=== PATIENT | female | born 1985 | race Caucasian/White ===

== ENCOUNTER 2021-03-26 16:39 | Emergency (ER) | payer OTHER, SELFPAY ==
[2021-03-26 16:45] VITALS: BP 181/107; PULSE 120; RESP 14; TEMP 36.7; O2SAT 99; BMI 31.1
--- NOTE | 2021-03-26 16:56 | ED_ITS ---
HPI - Headache General Chief Complaint: Headache Stated Complaint: migraine Time Seen by Provider: 03/26/21 16:43 Mode of arrival: Ambulatory History of Present Illness HPI Narrative: 35-year-old female smoker with history of migraines presents with a family frien d in the chief complaint of a migraine since this morning. She states that she has had a gradually worsening of a left posterior headache that is gradually worsened over the course of the day. It is now 7/10 and squeezing in nature. She states it is made worse with bright lights and loud noise and associated with nausea but no vomiting. She denies any blurred vision or trouble with speech. She denies any numbness, tingling or weakness. She has no fever or chills and denies any neck pain. She denies any recent trauma or head injuries. She states it feels quite similar to prior episodes of migraines, she has been seen (countless times) [place]raines [place]. Related Data Allergies Allergy/AdvReac Type Severity Reaction Status Date / Time No Known Drug Allergies Allergy Verified 03/26/21 16:50 Review of Systems Review of Systems Narrative: GENERAL: Denies chills, fatigue, malaise, fever, sweats. HEENT: Denies sinus pain, ear pain, sore throat, difficulty swallowing, dizziness. RESPIRATORY: Denies dyspnea, cough, wheezing, hemoptysis, sputum. CARDIOVASCULAR: Denies chest pain, palpitations, orthopnea, edema, GASTROINTESTINAL: See HPI : Denies dysuria, frequency, incontinence, hematuria, urinary retention. MUSCULOSKELETAL: denies weakness, joint pain, or bony pain SKIN: Denies rash, skin lesions, or other NEUROLOGIC: See HPI PSYCHIATRIC: No concerning psychosocial issues. 12 point review of systems is negative except for those stated above Patient History Social History Smoking Status: Current every day smoker Smoking Status: Current every day smoker alcohol intake frequency: holidays/special occasions only Substance Use Type: does not use Exam Narrative Exam Narrative: GENERAL: [35 year old patient appears stated age. Well-developed patient, in mild distress. HEAD: Atraumatic. Normocephalic. EYES: Pupils equal round and reactive. Extraocular motions intact. No scleral icterus. No injection or drainage. ENT: Nose without bleeding, purulent drainage. Throat without erythema, tonsillar hypertrophy or exudate. Airway patent. NECK: Trachea midline. Non tender CARDIOVASCULAR: Regular rate and rhythm without murmurs, gallops, or rubs. RESPIRATORY: Clear to auscultation. Breath sounds equal bilaterally. No wheezes, rales, or rhonchi. GASTROINTESTINAL: Abdomen soft, non-tender, nondistended. EXTREMITIES: No edema or joint tenderness. BACK: Nontender without deformity or crepitance. No flank tenderness. NEURO: AOx3. SKIN: No rash or erythema of visible areas NIH Stroke Scale 1a. LOC: Patient is alert and keenly responsive (0) 1b. LOC Questions: Patient answers both LOC questions accurately (0) 1c. LOC Commands: Patient performs both tasks correctly (0) 2. Best Gaze: Normal (0) 3. Visual: No visual loss (0) 4. Facial palsy: Normal symmetrical movements (0) 5. Motor arm: No drift (0) 6. Motor leg: No drift (0) 7. Limb ataxia: Absent (0) 8. Sensory: Normal (0) 9. Best language: No aphasia; normal (0) 10. Dysarthria: Normal (0) 11. Extinction and inattention: No abnormality (0) NIHSS: 0 Initial Vital Signs Initial Vital Signs: Vital Signs Temperature 98.1 F 03/26/21 16:45 Pulse Rate 120 H 03/26/21 16:45 Respiratory Rate 14 03/26/21 16:45 Blood Pressure 181/107 H 03/26/21 16:45 Pulse Oximetry 99 03/26/21 16:45 Course Course Course Narrative: patient has significant improvement in symptoms after above stated therapies, down to 04/13. Return precautions given and questions answered to her apparent satisfaction Orders Ordered: Discontinued Medications Dexamethasone (Dexamethasone 10 Mg/Ml Vial) 10 mg IV NOW ONE Stop: 03/26/21 16:57 Last Admin: 03/26/21 17:23 Dose: 10 mg Documented by: SALONI Diphenhydramine HCl (Diphenhydramine 50 Mg/Ml Vial) 25 mg IV NOW ONE Stop: 03/26/21 16:57 Last Admin: 03/26/21 17:22 Dose: 25 mg Documented by: SALONI Sodium Chloride (Normal Saline 0.9%) 1,000 mls @ 1,000 mls/hr IV BOLUS ONE Stop: 03/26/21 17:55 Last Infusion: 03/26/21 18:17 Dose: 0 mls/hr Documented by: Admin: 03/26/21 17:23 Dose: 1,000 mls/hr Documented by: SALONI Ketorolac Tromethamine (Ketorolac 30 Mg/Ml Vial) 15 mg IV NOW ONE Stop: 03/26/21 16:57 Last Admin: 03/26/21 17:22 Dose: 15 mg Documented by: SALONI Metoclopramide HCl (Metoclopramide 10 Mg/2 Ml Inj) 10 mg IV NOW ONE Stop: 03/26/21 16:57 Last Admin: 03/26/21 17:23 Dose: 10 mg Documented by: SALONI Vital Signs Vital signs: Vital Signs - 8 hr 03/26/21 16:45 Temperature 98.1 F Pulse Rate 120 H Respiratory Rate 14 Blood Pressure 181/107 H Pulse Oximetry 99 MDM - Headache MDM Narrative Medical decision making narrative: Headache considerations include, but not limited to: Subarachnoid hemorrhage, but unlikely as patient denies sudden onset of pain, not worst of life, or neck pain Meningitis considered, but thought unlikely given lack of Brudzinski's, Kernig's sign, altered mental status or fever Giant cell arteritis considered, but thought unlikely given lack of unilateral findings, pain in episcopal, vision change HTN Emergency considered, but thought unlikely given normal vitals Other serious diagnoses considered unlikely given lack of red flag findings such as sudden onset, increasing frequency, immunocompromise, systemic signs (fever, chills, stiff neck, or rash), focal neurologic findings, trauma, blood thinners, etc. Discharge Plan Departure Patient Disposition: Home Clinical Impression: Migraine Instructions: DI for Migraine Activity Restrictions/Additional Instructions: *You have been diagnosed with [ Headache ] *What to do: *Take medications as directed *Follow up with your primary care provider in 2-3 days, call for an appointment. Let them know you were seen in the Emergency Department and that we ask that you be seen in follow up *Return to ER if you should have any new, worsening or concerning symptoms, such as [ fever > 101F, neck pain or stiffness, vomiting, confusion, seizure, focal weakness, vision change, speech deficit or other concerning symptoms ]
[2021-03-26] MEDS: diphenhydrAMINE 50 MG/ML VIAL 25 MG IV (17:22)
[2021-03-26] MEDS: KETOROLAC 30 MG/ML VIAL 15 MG IV (17:22)
[2021-03-26] MEDS: SODIUM CHLORIDE 0.9% 1,000 ML 1000 ML IV (17:23)
[2021-03-26] MEDS: DEXAMETHASONE 10 MG/ML VIAL IV (17:23)
[2021-03-26] MEDS: METOCLOPRAMIDE 10 MG/2 ML INJ IV (17:23)
[2021-03-26 17:55] VITALS: BP 150/73; PULSE 91; RESP 18; O2SAT 98
== END 2021-03-26 18:18 | disposition home or self-care (01) ==
PROVIDERS: Emergency Provider Emergency Medicine
DX: G43.909 Migraine, unspecified, not intractable, without status migrainosus (principal); F17.200 Nicotine dependence, unspecified, uncomplicated
CPT/HCPCS: 96361; 96374; 96375; 99283; 99284; J1100; J1200; J1885; J2765